=== PATIENT | male | born 1980 | race African-American/Black ===

== ENCOUNTER 2020-11-25 07:58 | Emergency (ER) | payer SELFPAY ==
[~2020-11-25] VITALS: Ht 180.3 cm; Wt 130.6 kg
[2020-11-25] MEDS ORDERED: PANTOPRAZOLE 40 MG/10 ML VIAL INJ IV ONE (08:30)
[2020-11-25] MEDS ORDERED: SODIUM CHLORIDE 0.9% 1,000 ML IVB ONE (08:30)
[2020-11-25] MEDS ORDERED: MORPHINE SULFATE 4 MG/ML SYR/VIAL IV ONE (08:30)
[2020-11-25] MEDS ORDERED: PROCHLORPERAZINE EDISYLATE 5 MG/ML 2ML VIAL IV ONE (08:30)
[2020-11-25 09:12] LABS: Basophils # (auto) 0 10 ^3/uL (0-0.2); Eosinophils # (auto) 0 10 ^3/uL (0-0.8); Monocytes # (auto) 0.8 10 ^3/uL (0-1.3)
[2020-11-25 09:15] LABS: Basophils % (auto) 0.5 % (0.0-2.0); Eosinophils % (auto) 0.6 % (0.0-7.0); Hematocrit 43.8 % (41.0-53.0); Hemoglobin 14.4 g/dL (13.5-17.5); Lymphocytes # (auto) 1.7 10 ^3/uL (0.4-5.4); Lymphocytes % (auto) 34.5 % (10.0-50.0); Mean Corpuscular Hgb Conc. 32.9 g/dL (32.0-36.0); Mean Corpuscular Volume 66.9 fL (80.0-100.0); Monocytes % (auto) 15.3 % (0.0-12.0); Neutrophils # (auto) 2.5 10 ^3/uL (1.6-8.6); Neutrophils % (auto) 49.1 % (37.0-80.0); Nucleated Red Blood Cells % 0.3 %; Red Blood Cells 6.55 10^6/uL (4.5-5.90); Red Cell Distribution Width 15.6 % (11.8-14.3)
[2020-11-25 09:22] LABS: Albumin 3.9 g/dL (3.4-5.0); Anion Gap 3 (5-15); Blood Urea Nitrogen 10 mg/dL (7-18); Calcium 8.8 mg/dL (8.5-10.1); Carbon Dioxide 27 mmol/L (21-32); Chloride 104 mmol/L (98-107); Glucose 106 mg/dL (74-106); Lipase 286 U/L (73-393); Potassium 4.5 mmol/L (3.5-5.1); Sodium 134 mmol/L (136-145)
[2020-11-25 09:29] LABS: Alanine Aminotransferase 31 U/L (16-61); Alkaline Phosphatase 62 U/L (45-117); Aspartate Aminotransferase 20 U/L (15-37); BUN/Creatinine Ratio 9.4; Bilirubin, Total 0.5 mg/dL (0.2-1.0); GFR African American 101 mL/min; GFR Non-African American 83 mL/min; Total Protein 9.3 g/dL (6.4-8.2)
[2020-11-25 09:30] VITALS: BP 160/93
== END 2020-11-25 10:08 | disposition home or self-care (01) ==
LOC: ER 07:58
DX: K29.00 Acute gastritis without bleeding (principal)
CPT/HCPCS: 36415; 76705; 80053; 83690; 84484; 85025; 96361; 96374; 96375; 99284; C9113; J0780; J2270; J7030

== ENCOUNTER 2021-04-07 00:19 | Emergency (ER) | payer BC ==
[~2021-04-07] VITALS: Ht 180.3 cm; Wt 124.3 kg
[2021-04-07] MEDS ORDERED: ONDANSETRON HCL 4 MG/2 ML VIAL IV ONE (03:45)
[2021-04-07] MEDS ORDERED: SODIUM CHLORIDE 0.9% 1,000 ML IVB ONE (03:45)
[2021-04-07] MEDS ORDERED: MORPHINE SULFATE 10 MG/ML INJ 1ML SDV IV ONE (03:45)
[2021-04-07] MEDS ORDERED: MORPHINE SULFATE 4 MG/ML SYR/VIAL IV ONE (05:15)
[2021-04-07 05:32] LABS: Basophils # (auto) 0 10 ^3/uL (0-0.2); Basophils % (auto) 0.2 % (0.0-2.0); Eosinophils # (auto) 0 10 ^3/uL (0-0.8); Eosinophils % (auto) 0.3 % (0.0-7.0); Hematocrit 43.4 % (41.0-53.0); Lymphocytes # (auto) 1.5 10 ^3/uL (0.4-5.4); Lymphocytes % (auto) 23.7 % (10.0-50.0); Mean Corpuscular Hemoglobin 21.8 pg (28.0-32.0); Mean Corpuscular Hgb Conc. 32.2 g/dL (32.0-36.0); Mean Corpuscular Volume 67.8 fL (80.0-100.0); Monocytes # (auto) 0.6 10 ^3/uL (0-1.3); Monocytes % (auto) 9.5 % (0.0-12.0); Neutrophils # (auto) 4.3 10 ^3/uL (1.6-8.6); Neutrophils % (auto) 66.3 % (37.0-80.0); Nucleated Red Blood Cells % 0.2 %; Red Cell Distribution Width 16.5 % (11.8-14.3); White Blood Cell 6.5 10^3/uL (4.4-10.8)
[2021-04-07 05:40] LABS: Potassium 4.1 mmol/L (3.5-5.1)
[2021-04-07 05:42] VITALS: BP 145/91
[2021-04-07 05:47] LABS: Albumin 4.1 g/dL (3.4-5.0); BUN/Creatinine Ratio 12.5; Bilirubin, Total 0.4 mg/dL (0.2-1.0); Calcium 8.9 mg/dL (8.5-10.1)
== END 2021-04-07 08:28 | disposition home or self-care (01) ==
LOC: ER 00:19
DX: K59.39 Other megacolon (principal)
CPT/HCPCS: 36415; 74176; 80053; 82150; 83690; 85025; 93005; 96361; 96374; 96375; 99285; J2270; J2405; J7030

== ENCOUNTER 2021-04-27 15:53 | Emergency (ER) | payer BC ==
[~2021-04-27] VITALS: Ht 180.3 cm; Wt 124.3 kg
[2021-04-27] MEDS ORDERED: IOHEXOL 300 MG/ML 100ML BOTTLE IJ ONE (22:17)
[2021-04-28 00:12] LABS: Basophils # (auto) 0 10 ^3/uL (0-0.2); Basophils % (auto) 0.2 % (0.0-2.0); Eosinophils # (auto) 0 10 ^3/uL (0-0.8); Eosinophils % (auto) 0.4 % (0.0-7.0); Hematocrit 42.3 % (41.0-53.0); Hemoglobin 13.6 g/dL (13.5-17.5); Lymphocytes # (auto) 1.4 10 ^3/uL (0.4-5.4); Lymphocytes % (auto) 25.2 % (10.0-50.0); Mean Corpuscular Hemoglobin 21.7 pg (28.0-32.0); Mean Corpuscular Hgb Conc. 32.1 g/dL (32.0-36.0); Mean Corpuscular Volume 67.6 fL (80.0-100.0); Monocytes # (auto) 0.6 10 ^3/uL (0-1.3); Monocytes % (auto) 10.7 % (0.0-12.0); Neutrophils # (auto) 3.6 10 ^3/uL (1.6-8.6); Neutrophils % (auto) 63.5 % (37.0-80.0); Nucleated Red Blood Cells % 0.2 %; Red Blood Cells 6.27 10^6/uL (4.5-5.90); Red Cell Distribution Width 16.2 % (11.8-14.3); White Blood Cell 5.7 10^3/uL (4.4-10.8)
[2021-04-28 00:25] LABS: Potassium 4.4 mmol/L (3.5-5.1)
[2021-04-28 00:32] LABS: BUN/Creatinine Ratio 10.4; Bilirubin, Total 0.5 mg/dL (0.2-1.0); Calcium 9.1 mg/dL (8.5-10.1); Total Protein 8.3 g/dL (6.4-8.2)
[2021-04-28] MEDS ORDERED: SODIUM CHLORIDE 0.9% 1,000 ML IV ONE (00:45)
[2021-04-28] MEDS ORDERED: MORPHINE SULFATE 4 MG/ML SYR/VIAL IV ONE (00:45)
[2021-04-28] MEDS ORDERED: ONDANSETRON HCL 4 MG/2 ML VIAL IV ONE (00:45)
[2021-04-28 03:21] LABS: Urine Bacteria NONE SEEN /hpf (None Seen); Urine Blood Negative /uL (Negative); Urine WBC <1 /hpf (0 - 3)
[2021-04-28 03:23] LABS: Urine Specific Gravity > 1.030 (1.001-1.035)
[2021-04-28 03:48] VITALS: BP 132/74
[2021-04-28] MEDS ORDERED: SUCRALFATE 1 GM/10 ML ORAL SUSP PO ONE (04:00)
== END 2021-04-28 03:59 | disposition home or self-care (01) ==
LOC: ER 15:53
DX: R10.9 Unspecified abdominal pain (principal); K21.9 Gastro-esophageal reflux disease without esophagitis
CPT/HCPCS: 36415; 74177; 80053; 81001; 82150; 83605; 83690; 85025; 96361; 96374; 96375; 99285; J2270; J2405; J7030; Q9967

== ENCOUNTER 2021-07-11 06:07 | Inpatient (IN) | payer BC ==
[~2021-07-11] VITALS: Ht 180.3 cm; Wt 62.3 kg
[2021-07-11 07:04] LABS: Basophils # (auto) 0 10 ^3/uL (0-0.2); Eosinophils # (auto) 0 10 ^3/uL (0-0.8); Monocytes # (auto) 0.6 10 ^3/uL (0-1.3)
[2021-07-11 07:05] LABS: Basophils % (auto) 0.4 % (0.0-2.0); Lymphocytes # (auto) 1.3 10 ^3/uL (0.4-5.4); Lymphocytes % (auto) 32.3 % (10.0-50.0); Mean Corpuscular Hemoglobin 21.7 pg (28.0-32.0); Mean Corpuscular Hgb Conc. 32.5 g/dL (32.0-36.0); Mean Corpuscular Volume 66.9 fL (80.0-100.0); Neutrophils % (auto) 50.3 % (37.0-80.0); Nucleated Red Blood Cells % 0.3 %; Red Blood Cells 5.98 10^6/uL (4.5-5.90); Red Cell Distribution Width 15.7 % (11.8-14.3)
[2021-07-11 07:38] LABS: Albumin 3.8 g/dL (3.4-5.0); BUN/Creatinine Ratio 9.1; Calcium 9.1 mg/dL (8.5-10.1)
[2021-07-11 07:40] LABS: Bilirubin, Total 0.5 mg/dL (0.2-1.0); Total Protein 8.3 g/dL (6.4-8.2)
[2021-07-11 09:08] LABS: Urine WBC None Seen /hpf (0 - 3)
[2021-07-11] MEDS ORDERED: MORPHINE SULFATE INJECTION 2 MG/ML SYRG IV ONE (09:15)
[2021-07-11] MEDS ORDERED: ONDANSETRON HCL 4 MG/2 ML VIAL IV ONE (09:15)
[2021-07-11 09:26] LABS: Urine Bacteria NONE SEEN /hpf (None Seen); Urine Blood Negative /uL (Negative); Urine Specific Gravity 1.016 (1.001-1.035)
[2021-07-11] MEDS ORDERED: MORPHINE SULFATE INJECTION 2 MG/ML SYRG IV PRN ×2 (10:30→11:30)
[2021-07-11] MEDS ORDERED: ONDANSETRON HCL 4 MG/2 ML VIAL IV PRN (10:30)
[2021-07-11] MEDS ORDERED: SODIUM CHLORIDE 0.9% 1,000 ML IV ONE (10:30)
[2021-07-11] MEDS ORDERED: cefTRIAXone 1GM/50ML D5W 50 ML IV ONE (11:30)
[2021-07-11] MEDS ORDERED: LORazepam 0.5 MG TAB PO PRN (11:30)
[2021-07-11] MEDS ORDERED: HYDROcodone-ACET 5/325MG TAB PO PRN (11:30)
[2021-07-11] MEDS ORDERED: IPRATROPIUM BROM 0.5 MG/2.5ML INH SOL NEB ONE (11:30)
[2021-07-11] MEDS ORDERED: LACTULOSE 20Gm/30ML SOLN PO PRN (11:30)
[2021-07-11] MEDS ORDERED: CLINDAMYCIN 600 MG/4 ML VL IM ONE (11:30)
[2021-07-11] MEDS ORDERED: DOCUSATE SOD 100 MG CAP PO PRN (11:30)
[2021-07-11] MEDS ORDERED: PANTOPRAZOLE 40 MG/10 ML VIAL INJ IV ONE (11:30)
[2021-07-11] MEDS ORDERED: MULTIPLE VITAMINS W/ MINERALS TAB PO ONE (11:30)
[2021-07-11] MEDS ORDERED: NITROGLYCERIN 0.4 MG SL TAB SL PRN (11:30)
[2021-07-11] MEDS ORDERED: HYDROcodone-ACET 5/325MG TAB PO ONE (11:30)
[2021-07-11] MEDS ORDERED: GASTROGRAFIN 120 ML SOL ONE (11:36)
[2021-07-11 11:58] LABS: Magnesium 2.7 mg/dL (1.6-2.6); Phosphorus 3.9 mg/dL (2.5-4.90)
[2021-07-11] MEDS: SODIUM CHLORIDE 0.9% 1,000 ML IV SCH ×2 (12:20→22:00)
[2021-07-11] MEDS: IPRATROPIUM BROM 0.5 MG/2.5ML INH SOL NEB SCH ×3 (13:53→21:45)
[2021-07-11] MEDS ORDERED: DICY20TA PO (14:26)
[2021-07-11] MEDS ORDERED: ONDA-144 PO (14:29)
[2021-07-11] MEDS ORDERED: PANT40TA2 PO (14:29)
[2021-07-11] MEDS: MORPHINE SULFATE 4 MG/ML SYR/VIAL IV PRN (14:39)
[2021-07-11] MEDS ORDERED: MORPHINE SULFATE 4 MG/ML SYR/VIAL IV PRN (14:45)
[2021-07-11 14:59] VITALS: BP 130/81
[2021-07-11] MEDS: ONDANSETRON HCL 4 MG/2 ML VIAL IV PRN ×2 (17:17→23:53)
[2021-07-11] MEDS: MORPHINE SULFATE INJECTION 2 MG/ML SYRG IV PRN (18:51)
[2021-07-11] MEDS ORDERED: CLINDAMYCIN 600 MG/4 ML VL IM SCH (20:00)
[2021-07-11 22:00] VITALS: BP 146/95
[2021-07-11] MEDS: PANTOPRAZOLE 40 MG/10 ML VIAL INJ IV SCH (22:30)
[2021-07-11] MEDS: ATORVASTATIN 20 MG TAB PO SCH (22:30)
[2021-07-12] MEDS: IPRATROPIUM BROM 0.5 MG/2.5ML INH SOL NEB SCH ×6 (02:23→22:04)
[2021-07-12 05:00] VITALS: BP 148/104
[2021-07-12 05:01] LABS: Basophils # (auto) 0 10 ^3/uL (0-0.2); Basophils % (auto) 0.2 % (0.0-2.0); Eosinophils # (auto) 0 10 ^3/uL (0-0.8); Eosinophils % (auto) 0.1 % (0.0-7.0); Hematocrit 41.3 % (41.0-53.0); Hemoglobin 13.5 g/dL (13.5-17.5); Lymphocytes # (auto) 1.2 10 ^3/uL (0.4-5.4); Lymphocytes % (auto) 21.8 % (10.0-50.0); Mean Corpuscular Hemoglobin 21.8 pg (28.0-32.0); Mean Corpuscular Hgb Conc. 32.7 g/dL (32.0-36.0); Mean Corpuscular Volume 66.6 fL (80.0-100.0); Monocytes # (auto) 0.8 10 ^3/uL (0-1.3); Monocytes % (auto) 14.8 % (0.0-12.0); Neutrophils # (auto) 3.4 10 ^3/uL (1.6-8.6); Neutrophils % (auto) 63.1 % (37.0-80.0); Nucleated Red Blood Cells % 0.2 %; Red Blood Cells 6.21 10^6/uL (4.5-5.90); Red Cell Distribution Width 15.7 % (11.8-14.3); White Blood Cell 5.4 10^3/uL (4.4-10.8)
[2021-07-12 05:16] LABS: INR 1.09 (0.9-1.15); Partial Thromboplastin Time 29.5 sec (23.6-33.0)
[2021-07-12 05:21] LABS: Albumin 3.7 g/dL (3.4-5.0); Magnesium 2.6 mg/dL (1.6-2.6); Potassium 4.3 mmol/L (3.5-5.1)
[2021-07-12 05:27] LABS: Bilirubin, Total 0.4 mg/dL (0.2-1.0); Calcium 9.1 mg/dL (8.5-10.1); Phosphorus 4.6 mg/dL (2.5-4.90); Total Protein 8.6 g/dL (6.4-8.2); Uric Acid 6.8 mg/dL (3.5-7.2)
[2021-07-12] MEDS ORDERED: cefTRIAXone 1GM/50ML D5W 50 ML IV SCH (09:00)
[2021-07-12 09:19] VITALS: BP 160/104
[2021-07-12] MEDS ORDERED: PANTOPRAZOLE 40 MG/10 ML VIAL INJ IV SCH (10:00)
[2021-07-12] MEDS: CHOLECALCIFEROL (VITD3) 2,000 UNIT CAP/TAB PO SCH (10:30)
[2021-07-12] MEDS: MULTIPLE VITAMINS W/ MINERALS TAB PO SCH (10:30)
[2021-07-12] MEDS: ENOXAPARIN SOD 40 MG/0.4 ML SYRINGE SC SCH (10:30)
[2021-07-12] MEDS: PANTOPRAZOLE 40 MG/10 ML VIAL INJ IV SCH ×2 (10:30→22:07)
[2021-07-12] MEDS: ASPirin 81 mg TAB PO SCH (10:30)
[2021-07-12] MEDS: hydrALAZINE HCL 20 MG/ML VL IV PRN (11:30)
[2021-07-12] MEDS: ONDANSETRON HCL 4 MG/2 ML VIAL IV PRN (11:30)
[2021-07-12] MEDS: MORPHINE SULFATE 4 MG/ML SYR/VIAL IV PRN (11:37)
[2021-07-12 13:17] VITALS: BP 147/95
[2021-07-12] MEDS: MORPHINE SULFATE INJECTION 2 MG/ML SYRG IV PRN (20:00)
[2021-07-12 22:00] VITALS: BP 143/97
[2021-07-12] MEDS: SODIUM CHLORIDE 0.9% 1,000 ML IV SCH (22:07)
[2021-07-12] MEDS: ATORVASTATIN 20 MG TAB PO SCH (22:07)
[2021-07-13] VITALS: BP 143/97
[2021-07-13] MEDS: IPRATROPIUM BROM 0.5 MG/2.5ML INH SOL NEB SCH ×6 (02:34→22:45)
[2021-07-13 05:00] VITALS: BP 131/99
[2021-07-13 08:00] VITALS: BP 157/103
[2021-07-13] MEDS: CHOLECALCIFEROL (VITD3) 2,000 UNIT CAP/TAB PO SCH (09:09)
[2021-07-13] MEDS: MULTIPLE VITAMINS W/ MINERALS TAB PO SCH (09:09)
[2021-07-13] MEDS: PANTOPRAZOLE 40 MG/10 ML VIAL INJ IV SCH ×2 (09:09→22:54)
[2021-07-13] MEDS: ASPirin 81 mg TAB PO SCH (09:09)
[2021-07-13] MEDS: ENOXAPARIN SOD 40 MG/0.4 ML SYRINGE SC SCH (09:09)
[2021-07-13] MEDS: hydrALAZINE HCL 20 MG/ML VL IV PRN (09:10)
[2021-07-13] MEDS ORDERED: diphenhdrAMINE HCL 50 MG/1 ML VL ONE (10:39)
[2021-07-13] MEDS: MIDAZOLAM HCL 5 MG/ML-1ML VIAL ONE ×2 (10:40→10:43)
[2021-07-13] MEDS: fentaNYL CITRATE 100 MCG/2 ML VL ONE ×2 (10:40→10:43)
[2021-07-13 12:00] VITALS: BP 140/94
[2021-07-13] MEDS: SODIUM CHLORIDE 0.9% 1,000 ML IV SCH (12:36)
[2021-07-13] MEDS ORDERED: SODIUM CHLORIDE 0.9% 1,000 ML IV ONE (15:00)
[2021-07-13] MEDS ORDERED: PPN PER PHARMACY 0 ML IV SCH (15:00)
[2021-07-13 16:00] VITALS: BP 140/88
[2021-07-13] MEDS ORDERED: FLEET MINERAL OIL ENEMA 133 ML PR ONE (16:15)
[2021-07-13] MEDS ORDERED: GOLYTELY 4L KIT NG ONE (16:15)
[2021-07-13 17:57] LABS: Albumin 3.6 g/dL (3.4-5.0); BUN/Creatinine Ratio 13.6; Magnesium 2.5 mg/dL (1.6-2.6); Potassium 4.2 mmol/L (3.5-5.1)
[2021-07-13 17:59] LABS: Bilirubin, Total 0.6 mg/dL (0.2-1.0); Phosphorus 3.2 mg/dL (2.5-4.90); Total Protein 8.4 g/dL (6.4-8.2)
[2021-07-13] MEDS ORDERED: AMINO ACID INFUSION IN D10W 1,000 ML IV NR (20:00)
[2021-07-13 22:00] VITALS: BP 142/92
[2021-07-13] MEDS: MINERAL OIL 30 ML GT SCH (22:54)
[2021-07-14] MEDS ORDERED: DEXTROSE (50%) 50ML SYRG IV SCH
[2021-07-14] MEDS: ACCU-CHEK COMFORT CURVE STRIP VI SCH ×4 (00:01→18:49)
[2021-07-14] MEDS: IPRATROPIUM BROM 0.5 MG/2.5ML INH SOL NEB SCH ×6 (02:35→22:45)
[2021-07-14 05:00] VITALS: BP 123/86
[2021-07-14] MEDS: InsuLIN REG 1unit/0.01ml Soln (100units/ml) SC SCH ×4 (06:00→18:58)
[2021-07-14] MEDS: SODIUM CHLORIDE 0.9% 1,000 ML IV SCH ×2 (06:10→22:12)
[2021-07-14 07:15] LABS: Potassium 3.9 mmol/L (3.5-5.1)
[2021-07-14 07:24] LABS: Albumin 3.3 g/dL (3.4-5.0); Bilirubin, Total 0.7 mg/dL (0.2-1.0); Calcium 8.9 mg/dL (8.5-10.1); Magnesium 2.6 mg/dL (1.6-2.6); Phosphorus 3.6 mg/dL (2.5-4.90); Total Protein 7.8 g/dL (6.4-8.2)
[2021-07-14 08:45] VITALS: BP 123/86
[2021-07-14 09:09] VITALS: BP 136/99
[2021-07-14] MEDS: ENOXAPARIN SOD 40 MG/0.4 ML SYRINGE SC SCH (10:05)
[2021-07-14] MEDS: PANTOPRAZOLE 40 MG/10 ML VIAL INJ IV SCH ×2 (10:05→22:11)
[2021-07-14] MEDS: MINERAL OIL 30 ML GT SCH ×2 (10:05→22:00)
[2021-07-14] MEDS ORDERED: FLEET MINERAL OIL ENEMA 133 ML PR ONE (12:30)
[2021-07-14 13:00] VITALS: BP 133/95
[2021-07-14] MEDS ORDERED: D5W/SOD CHL 0.45%/KCL 20MEQ 1,000 ML IV ONE (15:15)
[2021-07-14 17:10] VITALS: BP 146/104
[2021-07-14] MEDS: MORPHINE SULFATE INJECTION 2 MG/ML SYRG IV PRN (17:26)
[2021-07-14] MEDS ORDERED: PPN PER PHARMACY IV NR ×8 (20:00)
[2021-07-14 22:00] VITALS: BP 135/93
[2021-07-15] VITALS (12 sets, daily range): BP systolic 130–156; BP diastolic 89–103
[2021-07-15] MEDS: ACCU-CHEK COMFORT CURVE STRIP VI SCH ×4 (02:02→17:11)
[2021-07-15] MEDS: IPRATROPIUM BROM 0.5 MG/2.5ML INH SOL NEB SCH ×6 (02:05→22:00)
[2021-07-15] MEDS: InsuLIN REG 1unit/0.01ml Soln (100units/ml) SC SCH ×4 (06:00→17:10)
[2021-07-15 06:50] LABS: Hemoglobin 12.7 g/dL (13.5-17.5); Red Cell Distribution Width 15.7 % (11.8-14.3)
[2021-07-15 06:53] LABS: Hematocrit 37.6 % (41.0-53.0); Mean Corpuscular Hemoglobin 22.4 pg (28.0-32.0); Mean Corpuscular Hgb Conc. 33.7 g/dL (32.0-36.0); Mean Corpuscular Volume 66.4 fL (80.0-100.0); Red Blood Cells 5.66 10^6/uL (4.5-5.90); White Blood Cell 3.9 10^3/uL (4.4-10.8)
[2021-07-15] MEDS ORDERED: ceFAZolin 1GM/50ML 100 ML IV ONE (07:01)
[2021-07-15 07:02] LABS: INR 1.11 (0.9-1.15); Partial Thromboplastin Time 30.8 sec (23.6-33.0)
[2021-07-15 07:03] LABS: Band Neutrophils % (manual) 0; Basophils % (manual) 0 (0.0-2.0); Blast Cells 0; Metamyelocytes % 0; Myelocytes % 0; Reactive Lymphocytes 0
[2021-07-15 07:05] LABS: Albumin 3.3 g/dL (3.4-5.0); BUN/Creatinine Ratio 13.3; Calcium 8.7 mg/dL (8.5-10.1); Magnesium 2.4 mg/dL (1.6-2.6); Potassium 3.8 mmol/L (3.5-5.1)
[2021-07-15 07:07] LABS: Bilirubin, Total 0.7 mg/dL (0.2-1.0); Phosphorus 3.2 mg/dL (2.5-4.90); Total Protein 7.7 g/dL (6.4-8.2)
[2021-07-15] MEDS ORDERED: HYDROmorphone HCL 2 MG/ML VL ONE ×2 (07:46→11:24)
[2021-07-15] MEDS ORDERED: ONDANSETRON HCL 4 MG/2 ML VIAL ONE (07:47)
[2021-07-15] MEDS ORDERED: LIDOCAINE 2% (LOCAL ANESTH.) PF 5ml SDV ONE (07:47)
[2021-07-15] MEDS ORDERED: fentaNYL CITRATE 100 MCG/2 ML VL ONE ×2 (07:47→09:34)
[2021-07-15] MEDS ORDERED: MIDAZOLAM HCL 2MG/2ML 2ml VIAL (1mg/ml) ONE (07:47)
[2021-07-15] MEDS ORDERED: PROPOFOL 10 MG/ML 20 ML IV ONE (07:47)
[2021-07-15 08:28] LABS: Eosinophils % (manual) 1 (0-7); Lymphocytes % (manual) 26 (10.0-50.0); Monocytes % (manual) 23 (0-12); Promyelocytes % 1
[2021-07-15] MEDS: PANTOPRAZOLE 40 MG/10 ML VIAL INJ IV SCH ×2 (10:00→20:37)
[2021-07-15] MEDS: MINERAL OIL 30 ML GT SCH (10:00)
[2021-07-15] MEDS: ENOXAPARIN SOD 40 MG/0.4 ML SYRINGE SC SCH (10:00)
[2021-07-15] MEDS ORDERED: GLYCOPYRROLATE 0.2 MG/ML 1ML VIAL ONE (11:13)
[2021-07-15] MEDS ORDERED: NEOSTIGMINE 1 MG/ML INJ (10mg/10ML VIAL) ONE (11:13)
[2021-07-15] MEDS ORDERED: ONDANSETRON HCL 4 MG/2 ML VIAL IV PRN (11:30)
[2021-07-15] MEDS ORDERED: HYDROmorphone HCL 2 MG/ML VL IV PRN (11:30)
[2021-07-15] MEDS: HYDROmorphone HCL 2 MG/ML VL IV PRN ×4 (11:30→22:41)
[2021-07-15] MEDS ORDERED: LABETALOL HCL 5 MG/ML 4ML SYRINGE IV PRN (13:30)
[2021-07-15] MEDS: MORPHINE SULFATE INJECTION 2 MG/ML SYRG IV PRN (14:37)
[2021-07-15] MEDS: SODIUM CHLORIDE 0.9% 1,000 ML IV SCH (15:23)
[2021-07-15] MEDS ORDERED: MORPHINE SULFATE INJECTION 2 MG/ML SYRG IV PRN (17:00)
[2021-07-15] MEDS ORDERED: PPN PER PHARMACY IV NR ×9 (20:00)
[2021-07-16] VITALS (16 sets, daily range): BP systolic 109–142; BP diastolic 60–91
[2021-07-16] MEDS: IPRATROPIUM BROM 0.5 MG/2.5ML INH SOL NEB SCH ×6 (02:00→22:12)
[2021-07-16] MEDS: InsuLIN REG 1unit/0.01ml Soln (100units/ml) SC SCH ×4 (02:18→17:01)
[2021-07-16] MEDS: ACCU-CHEK COMFORT CURVE STRIP VI SCH ×4 (02:30→17:00)
[2021-07-16] MEDS: HYDROmorphone HCL 2 MG/ML VL IV PRN ×5 (02:59→21:11)
[2021-07-16 04:26] LABS: Basophils # (auto) 0 10 ^3/uL (0-0.2); Basophils % (auto) 0.2 % (0.0-2.0); Eosinophils # (auto) 0 10 ^3/uL (0-0.8)
[2021-07-16 04:29] LABS: Eosinophils % (auto) 0.2 % (0.0-7.0); Hematocrit 38.9 % (41.0-53.0); Hemoglobin 12.6 g/dL (13.5-17.5); Lymphocytes % (auto) 17.9 % (10.0-50.0); Mean Corpuscular Hemoglobin 21.6 pg (28.0-32.0); Mean Corpuscular Hgb Conc. 32.5 g/dL (32.0-36.0); Mean Corpuscular Volume 66.7 fL (80.0-100.0); Monocytes # (auto) 0.7 10 ^3/uL (0-1.3); Monocytes % (auto) 12.3 % (0.0-12.0); Neutrophils # (auto) 3.8 10 ^3/uL (1.6-8.6); Neutrophils % (auto) 69.4 % (37.0-80.0); Nucleated Red Blood Cells % 0.2 %; Red Blood Cells 5.84 10^6/uL (4.5-5.90); Red Cell Distribution Width 15.7 % (11.8-14.3); White Blood Cell 5.4 10^3/uL (4.4-10.8)
[2021-07-16 04:47] LABS: Albumin 2.4 g/dL (3.4-5.0); BUN/Creatinine Ratio 10.4; Calcium 7.9 mg/dL (8.5-10.1); Potassium 4.4 mmol/L (3.5-5.1)
[2021-07-16 04:50] LABS: Bilirubin, Total 0.5 mg/dL (0.2-1.0); Phosphorus 3.1 mg/dL (2.5-4.90); Total Protein 6.6 g/dL (6.4-8.2)
[2021-07-16] MEDS: SODIUM CHLORIDE 0.9% 1,000 ML IV SCH (07:43)
[2021-07-16] MEDS: KETOROLAC TROMETH 30 MG/ML 1ML VIAL IV PRN (08:50)
[2021-07-16] MEDS: PANTOPRAZOLE 40 MG/10 ML VIAL INJ IV SCH ×2 (09:13→21:11)
[2021-07-16] MEDS: ENOXAPARIN SOD 40 MG/0.4 ML SYRINGE SC SCH (09:13)
[2021-07-16] MEDS: PPN PER PHARMACY IV NR ×11 (20:00)
[2021-07-17] MEDS: InsuLIN REG 1unit/0.01ml Soln (100units/ml) SC SCH ×4 (00:07→18:00)
[2021-07-17] MEDS: ACCU-CHEK COMFORT CURVE STRIP VI SCH ×4 (00:11→19:28)
[2021-07-17] MEDS: SODIUM CHLORIDE 0.9% 1,000 ML IV SCH ×2 (01:30→18:14)
[2021-07-17] MEDS: HYDROmorphone HCL 2 MG/ML VL IV PRN ×5 (02:19→22:45)
[2021-07-17] MEDS: IPRATROPIUM BROM 0.5 MG/2.5ML INH SOL NEB SCH ×6 (02:42→22:16)
[2021-07-17 05:00] VITALS: BP 115/72
[2021-07-17 06:41] LABS: Basophils # (auto) 0 10 ^3/uL (0-0.2); Eosinophils # (auto) 0 10 ^3/uL (0-0.8); Eosinophils % (auto) 0.6 % (0.0-7.0); Neutrophils % (auto) 70.5 % (37.0-80.0); White Blood Cell 5.9 10^3/uL (4.4-10.8)
[2021-07-17 06:44] LABS: Basophils % (auto) 0.1 % (0.0-2.0); Hemoglobin 11.3 g/dL (13.5-17.5); Lymphocytes % (auto) 16.2 % (10.0-50.0); Mean Corpuscular Hemoglobin 21.4 pg (28.0-32.0); Mean Corpuscular Hgb Conc. 32.2 g/dL (32.0-36.0); Mean Corpuscular Volume 66.4 fL (80.0-100.0); Monocytes # (auto) 0.7 10 ^3/uL (0-1.3); Monocytes % (auto) 12.6 % (0.0-12.0); Neutrophils # (auto) 4.1 10 ^3/uL (1.6-8.6); Red Blood Cells 5.26 10^6/uL (4.5-5.90); Red Cell Distribution Width 15.3 % (11.8-14.3)
[2021-07-17 06:58] LABS: Potassium 4.4 mmol/L (3.5-5.1)
[2021-07-17 07:03] LABS: Albumin 2.2 g/dL (3.4-5.0); BUN/Creatinine Ratio 12.5; Bilirubin, Total 0.5 mg/dL (0.2-1.0); Calcium 8.3 mg/dL (8.5-10.1); Magnesium 2.6 mg/dL (1.6-2.6); Phosphorus 3.1 mg/dL (2.5-4.90); Total Protein 6.7 g/dL (6.4-8.2)
[2021-07-17] MEDS: PIPERACILLIN-TAZOB 3.375GM 100 ML IV SCH (07:56)
[2021-07-17 09:00] VITALS: BP 133/69
[2021-07-17] MEDS ORDERED: PIPERACILLIN-TAZOB 2.25GM 50 ML IV ONE (10:00)
[2021-07-17] MEDS: ENOXAPARIN SOD 40 MG/0.4 ML SYRINGE SC SCH (11:13)
[2021-07-17] MEDS: PANTOPRAZOLE 40 MG/10 ML VIAL INJ IV SCH ×2 (11:13→22:47)
[2021-07-17] MEDS: PPN PER PHARMACY IV NR ×11 (11:18)
[2021-07-17 11:21] VITALS: BP 133/69
[2021-07-17 13:00] VITALS: BP 121/76
[2021-07-17 17:00] VITALS: BP 113/67
[2021-07-17] MEDS ORDERED: THROAT LOZENGES(CEPASTAT) MT PRN (18:45)
[2021-07-17] MEDS ORDERED: DEXTROSE (50%) 50ML SYRG IV ONE (18:45)
[2021-07-17] MEDS: D5W 5% 1,000 ML IV SCH (19:28)
[2021-07-17] MEDS ORDERED: PPN PER PHARMACY IV NR ×10 (20:00)
[2021-07-17 22:00] VITALS: BP_SYST 109; BP_SYST 127; BP_DIAS 68; BP_DIAS 73
[2021-07-18] MEDS: ACCU-CHEK COMFORT CURVE STRIP VI SCH ×5 (00:15→23:24)
[2021-07-18] MEDS: PIPERACILLIN-TAZOB 3.375GM 100 ML IV SCH ×4 (00:56→17:00)
[2021-07-18] MEDS: IPRATROPIUM BROM 0.5 MG/2.5ML INH SOL NEB SCH ×6 (03:45→22:43)
[2021-07-18 05:00] VITALS: BP 133/84
[2021-07-18] MEDS: HYDROmorphone HCL 2 MG/ML VL IV PRN ×7 (05:13→23:34)
[2021-07-18] MEDS: InsuLIN REG 1unit/0.01ml Soln (100units/ml) SC SCH ×5 (05:28→23:24)
[2021-07-18 06:23] VITALS: BP 133/84
[2021-07-18 07:32] LABS: Basophils # (auto) 0 10 ^3/uL (0-0.2); Eosinophils # (auto) 0.1 10 ^3/uL (0-0.8); Lymphocytes # (auto) 0.6 10 ^3/uL (0.4-5.4); Mean Corpuscular Volume 66.4 fL (80.0-100.0); Monocytes # (auto) 0.6 10 ^3/uL (0-1.3); White Blood Cell 4.8 10^3/uL (4.4-10.8)
[2021-07-18 07:36] LABS: Basophils % (auto) 0.1 % (0.0-2.0); Eosinophils % (auto) 2.1 % (0.0-7.0); Hemoglobin 10.5 g/dL (13.5-17.5); Lymphocytes % (auto) 13.6 % (10.0-50.0); Mean Corpuscular Hemoglobin 21.9 pg (28.0-32.0); Monocytes % (auto) 13.3 % (0.0-12.0); Neutrophils # (auto) 3.4 10 ^3/uL (1.6-8.6); Neutrophils % (auto) 70.9 % (37.0-80.0); Red Blood Cells 4.82 10^6/uL (4.5-5.90); Red Cell Distribution Width 14.9 % (11.8-14.3)
[2021-07-18 07:59] LABS: Calcium 8.4 mg/dL (8.5-10.1); Potassium 3.9 mmol/L (3.5-5.1)
[2021-07-18 08:05] LABS: Bilirubin, Total 0.4 mg/dL (0.2-1.0); Magnesium 2.7 mg/dL (1.6-2.6); Phosphorus 2.9 mg/dL (2.5-4.90); Total Protein 6.7 g/dL (6.4-8.2)
[2021-07-18 08:55] VITALS: BP 114/72
[2021-07-18] MEDS: PANTOPRAZOLE 40 MG/10 ML VIAL INJ IV SCH ×2 (10:56→21:14)
[2021-07-18] MEDS: ENOXAPARIN SOD 40 MG/0.4 ML SYRINGE SC SCH (10:56)
[2021-07-18 12:48] VITALS: BP 127/67
[2021-07-18] MEDS: D5W 5% 1,000 ML IV SCH ×2 (14:45→17:35)
[2021-07-18 17:00] VITALS: BP 110/70
[2021-07-18] MEDS ORDERED: PPN PER PHARMACY IV NR ×9 (20:00)
[2021-07-18 22:00] VITALS: BP 119/62
[2021-07-19] MEDS: PIPERACILLIN-TAZOB 3.375GM 100 ML IV SCH ×2 (01:39→09:43)
[2021-07-19] MEDS: HYDROmorphone HCL 2 MG/ML VL IV PRN ×4 (02:38→20:33)
[2021-07-19] MEDS: IPRATROPIUM BROM 0.5 MG/2.5ML INH SOL NEB SCH ×2 (02:41→06:07)
[2021-07-19 05:00] VITALS: BP 105/73
[2021-07-19 05:35] LABS: Calcium 8.4 mg/dL (8.5-10.1); Potassium 3.9 mmol/L (3.5-5.1)
[2021-07-19 05:37] LABS: Basophils # (auto) 0 10 ^3/uL (0-0.2); Basophils % (auto) 0.3 % (0.0-2.0); Eosinophils # (auto) 0.2 10 ^3/uL (0-0.8); Eosinophils % (auto) 4.4 % (0.0-7.0); Hematocrit 31.5 % (41.0-53.0); Hemoglobin 10.3 g/dL (13.5-17.5); Lymphocytes # (auto) 0.7 10 ^3/uL (0.4-5.4); Lymphocytes % (auto) 21.1 % (10.0-50.0); Mean Corpuscular Hemoglobin 21.5 pg (28.0-32.0); Mean Corpuscular Hgb Conc. 32.6 g/dL (32.0-36.0); Mean Corpuscular Volume 66.1 fL (80.0-100.0); Monocytes # (auto) 0.6 10 ^3/uL (0-1.3); Neutrophils # (auto) 1.9 10 ^3/uL (1.6-8.6); Neutrophils % (auto) 55.6 % (37.0-80.0); Nucleated Red Blood Cells % 0.2 %; Red Blood Cells 4.76 10^6/uL (4.5-5.90); White Blood Cell 3.4 10^3/uL (4.4-10.8)
[2021-07-19 05:38] LABS: BUN/Creatinine Ratio 15.4; Magnesium 2.2 mg/dL (1.6-2.6); Monocytes % (auto) 18.6 % (0.0-12.0)
[2021-07-19] MEDS: ACCU-CHEK COMFORT CURVE STRIP VI SCH ×4 (05:40→23:37)
[2021-07-19] MEDS: InsuLIN REG 1unit/0.01ml Soln (100units/ml) SC SCH ×4 (05:40→23:38)
[2021-07-19 05:41] LABS: Bilirubin, Total 0.3 mg/dL (0.2-1.0); Phosphorus 3.8 mg/dL (2.5-4.90); Total Protein 6.6 g/dL (6.4-8.2)
[2021-07-19 06:07] VITALS: BP 110/63
[2021-07-19] MEDS ORDERED: IPRATROPIUM BROM 0.5 MG/2.5ML INH SOL NEB PRN (07:15)
[2021-07-19 09:30] VITALS: BP 90/57
[2021-07-19] MEDS: PANTOPRAZOLE 40 MG/10 ML VIAL INJ IV SCH (09:44)
[2021-07-19] MEDS: D5W 5% 1,000 ML IV SCH (09:44)
[2021-07-19] MEDS: ENOXAPARIN SOD 40 MG/0.4 ML SYRINGE SC SCH (09:44)
[2021-07-19 12:27] VITALS: BP 129/71
[2021-07-19 16:31] VITALS: BP 118/63
[2021-07-19] MEDS ORDERED: PPN PER PHARMACY IV NR ×10 (20:00)
[2021-07-19 22:00] VITALS: BP 121/69
[2021-07-20] MEDS: HYDROmorphone HCL 2 MG/ML VL IV PRN (05:04)
[2021-07-20 05:18] VITALS: BP 115/76
[2021-07-20] MEDS: InsuLIN REG 1unit/0.01ml Soln (100units/ml) SC SCH (06:00)
[2021-07-20] MEDS: ACCU-CHEK COMFORT CURVE STRIP VI SCH (06:11)
[2021-07-20 06:21] LABS: Basophils # (auto) 0 10 ^3/uL (0-0.2); Eosinophils # (auto) 0.1 10 ^3/uL (0-0.8); Lymphocytes # (auto) 0.7 10 ^3/uL (0.4-5.4); Monocytes % (auto) 16.7 % (0.0-12.0); Nucleated Red Blood Cells % 0.1 %
[2021-07-20 06:24] LABS: Basophils % (auto) 0.5 % (0.0-2.0); Eosinophils % (auto) 3.8 % (0.0-7.0); Hematocrit 31.9 % (41.0-53.0); Hemoglobin 11.2 g/dL (13.5-17.5); Lymphocytes % (auto) 17.5 % (10.0-50.0); Mean Corpuscular Hemoglobin 22.9 pg (28.0-32.0); Mean Corpuscular Hgb Conc. 35.1 g/dL (32.0-36.0); Mean Corpuscular Volume 65.4 fL (80.0-100.0); Monocytes # (auto) 0.6 10 ^3/uL (0-1.3); Neutrophils # (auto) 2.3 10 ^3/uL (1.6-8.6); Neutrophils % (auto) 61.5 % (37.0-80.0); Red Blood Cells 4.87 10^6/uL (4.5-5.90); Red Cell Distribution Width 14.9 % (11.8-14.3); White Blood Cell 3.8 10^3/uL (4.4-10.8)
[2021-07-20 06:41] LABS: Albumin 2.2 g/dL (3.4-5.0); Calcium 8.9 mg/dL (8.5-10.1); Magnesium 2.2 mg/dL (1.6-2.6); Potassium 3.9 mmol/L (3.5-5.1)
[2021-07-20 06:45] LABS: BUN/Creatinine Ratio 16.1; Bilirubin, Total 0.3 mg/dL (0.2-1.0); Phosphorus 3.8 mg/dL (2.5-4.90); Total Protein 7.2 g/dL (6.4-8.2)
[2021-07-20 08:21] VITALS: BP 115/76
[2021-07-20 09:00] VITALS: BP 124/72
[2021-07-20] MEDS: ENOXAPARIN SOD 40 MG/0.4 ML SYRINGE SC SCH (09:41)
[2021-07-20] MEDS: KETOROLAC TROMETH 30 MG/ML 1ML VIAL IV PRN (09:58)
[2021-07-20] MEDS ORDERED: PANTOPRAZOLE 40 MG/10 ML VIAL INJ IV SCH (10:00)
[2021-07-20 12:19] VITALS: BP 113/70
[2021-07-20] MEDS: HYDROcodone-ACET 5/325MG TAB PO PRN (14:52)
[2021-07-20 17:02] VITALS: BP 115/78
[2021-07-20] MEDS ORDERED: SODIUM ACETATE IV NR ×10 (20:00)
[2021-07-20] MEDS ORDERED: SODIUM CHLORIDE IV NR ×10 (20:00)
[2021-07-20] MEDS ORDERED: FAT EMULSION IV NR ×10 (20:00)
[2021-07-20] MEDS ORDERED: PPN PER PHARMACY IV NR ×10 (20:00)
[2021-07-20] MEDS ORDERED: [UNRECOGNIZED DRUG - OTHER] IV NR ×10 (20:00)
[2021-07-20 22:00] VITALS: BP 112/71
[2021-07-21] MEDS: HYDROcodone-ACET 5/325MG TAB PO PRN ×3 (00:35→19:07)
[2021-07-21 05:00] VITALS: BP 124/77
[2021-07-21 06:42] LABS: Basophils # (auto) 0 10 ^3/uL (0-0.2); Eosinophils # (auto) 0.2 10 ^3/uL (0-0.8); Mean Corpuscular Volume 65.9 fL (80.0-100.0); Nucleated Red Blood Cells % 0.1 %; White Blood Cell 3.3 10^3/uL (4.4-10.8)
[2021-07-21 06:45] LABS: Basophils % (auto) 0.6 % (0.0-2.0); Eosinophils % (auto) 5.6 % (0.0-7.0); Hematocrit 32.5 % (41.0-53.0); Hemoglobin 10.9 g/dL (13.5-17.5); Mean Corpuscular Hgb Conc. 33.4 g/dL (32.0-36.0); Monocytes # (auto) 0.7 10 ^3/uL (0-1.3); Neutrophils # (auto) 1.4 10 ^3/uL (1.6-8.6); Neutrophils % (auto) 43.4 % (37.0-80.0); Red Blood Cells 4.93 10^6/uL (4.5-5.90); Red Cell Distribution Width 14.8 % (11.8-14.3)
[2021-07-21 06:55] LABS: Monocytes % (auto) 20.4 % (0.0-12.0)
[2021-07-21 06:56] LABS: Albumin 2.3 g/dL (3.4-5.0); Potassium 4.3 mmol/L (3.5-5.1)
[2021-07-21 06:58] LABS: BUN/Creatinine Ratio 14.5
[2021-07-21 07:01] LABS: Bilirubin, Total 0.4 mg/dL (0.2-1.0); Total Protein 7.2 g/dL (6.4-8.2)
[2021-07-21] MEDS: ENOXAPARIN SOD 40 MG/0.4 ML SYRINGE SC SCH (08:59)
[2021-07-21 09:00] VITALS: BP 131/79
[2021-07-21 13:00] VITALS: BP 118/61
[2021-07-21] MEDS: HYDROmorphone HCL 2 MG/ML VL IV PRN (13:21)
[2021-07-21 17:00] VITALS: BP 133/73
[2021-07-21] MEDS: ONDANSETRON HCL 4 MG/2 ML VIAL IV PRN (18:35)
[2021-07-21 22:00] VITALS: BP 116/70
[2021-07-22 05:00] VITALS: BP 127/85
[2021-07-22] MEDS: HYDROcodone-ACET 5/325MG TAB PO PRN ×3 (06:11→22:30)
[2021-07-22 06:47] LABS: Hemoglobin 10.5 g/dL (13.5-17.5); White Blood Cell 3.8 10^3/uL (4.4-10.8)
[2021-07-22 06:49] LABS: Hematocrit 31.7 % (41.0-53.0); Mean Corpuscular Hemoglobin 21.8 pg (28.0-32.0); Mean Corpuscular Hgb Conc. 33.2 g/dL (32.0-36.0); Mean Corpuscular Volume 65.5 fL (80.0-100.0); Red Blood Cells 4.84 10^6/uL (4.5-5.90); Red Cell Distribution Width 14.7 % (11.8-14.3)
[2021-07-22 07:13] LABS: Band Neutrophils % (manual) 0; Basophils % (manual) 0 (0.0-2.0); Blast Cells 0; Metamyelocytes % 0; Myelocytes % 0; Promyelocytes % 0; Reactive Lymphocytes 0
[2021-07-22 08:00] VITALS: BP 120/65
[2021-07-22] MEDS: ENOXAPARIN SOD 40 MG/0.4 ML SYRINGE SC SCH (10:07)
[2021-07-22 11:26] LABS: Eosinophils % (manual) 2 (0-7); Lymphocytes % (manual) 32 (10.0-50.0); Monocytes % (manual) 4 (0-12)
[2021-07-22 12:00] VITALS: BP 111/66
[2021-07-22 16:00] VITALS: BP 105/62
[2021-07-22 22:00] VITALS: BP 108/62
[2021-07-23] MEDS: HYDROcodone-ACET 5/325MG TAB PO PRN ×4 (04:07→21:37)
[2021-07-23 05:00] VITALS: BP 120/70
[2021-07-23 09:00] VITALS: BP 122/75
[2021-07-23] MEDS ORDERED: HYOSCYAMINE SULF 0.125 MG ODT TAB PO PRN (10:00)
[2021-07-23] MEDS: ENOXAPARIN SOD 40 MG/0.4 ML SYRINGE SC SCH (10:38)
[2021-07-23] MEDS: FLORASTOR (S. BOULARDII) 250 MG CAP PO SCH (10:40)
[2021-07-23 13:00] VITALS: BP 124/75
[2021-07-23] MEDS: ONDANSETRON HCL 4 MG/2 ML VIAL IV PRN (13:23)
[2021-07-23 17:00] VITALS: BP 130/58
[2021-07-23 22:00] VITALS: BP 125/76
[2021-07-24 05:00] VITALS: BP 125/67
[2021-07-24] MEDS ORDERED: SACC250C PO (09:24)
[2021-07-24] MEDS ORDERED: PANT40TA2 PO (09:24)
[2021-07-24] MEDS ORDERED: HYDR-4902 PO (09:25)
[2021-07-24] MEDS ORDERED: ONDA-144 PO (09:30)
[2021-07-24] MEDS ORDERED: DICY10CA PO (09:30)
[2021-07-24] MEDS: FLORASTOR (S. BOULARDII) 250 MG CAP PO SCH (09:46)
[2021-07-24] MEDS: ENOXAPARIN SOD 40 MG/0.4 ML SYRINGE SC SCH (09:46)
[2021-07-24] MEDS: HYDROcodone-ACET 5/325MG TAB PO PRN (09:47)
== END 2021-07-24 15:33 | disposition home health service (06) | DRG 330 ==
LOC: ER 06:07 → OVERFLOW 11:17 → EAST 13:23 → TELE-EAST 07-15 06:47 → ICU WEST 07-15 13:40 → TELE-CENTR 07-16 13:39 → CENTRAL 07-19 16:42
PROVIDERS: ADMIT Hospitalist; ATTEND Internal Medicine
PROC: 5A09357 Assistance with Respiratory Ventilation, Less than 24 Consecutive Hours, Continuous Positive Airway Pressure (ICD-10-PCS; principal; 2021-07-11)
PROC: 0D9670Z Drainage of Stomach with Drainage Device, Via Natural or Artificial Opening (ICD-10-PCS; 2021-07-12)
PROC: 5A09357 Assistance with Respiratory Ventilation, Less than 24 Consecutive Hours, Continuous Positive Airway Pressure (ICD-10-PCS; 2021-07-13)
PROC: 0DJD8ZZ Inspection of Lower Intestinal Tract, Via Natural or Artificial Opening Endoscopic (ICD-10-PCS; 2021-07-13)
PROC: 0D1B0Z4 Bypass Ileum to Cutaneous, Open Approach (ICD-10-PCS; 2021-07-15)
PROC: 5A09357 Assistance with Respiratory Ventilation, Less than 24 Consecutive Hours, Continuous Positive Airway Pressure (ICD-10-PCS; 2021-07-15)
PROC: 0DBN0ZZ Excision of Sigmoid Colon, Open Approach (ICD-10-PCS; 2021-07-15 07:53)
PROC: 5A09357 Assistance with Respiratory Ventilation, Less than 24 Consecutive Hours, Continuous Positive Airway Pressure (ICD-10-PCS; 2021-07-17)
PROC: 5A09357 Assistance with Respiratory Ventilation, Less than 24 Consecutive Hours, Continuous Positive Airway Pressure (ICD-10-PCS; 2021-07-18)
PROC: 5A09357 Assistance with Respiratory Ventilation, Less than 24 Consecutive Hours, Continuous Positive Airway Pressure (ICD-10-PCS; 2021-07-19)
PROC: 5A09357 Assistance with Respiratory Ventilation, Less than 24 Consecutive Hours, Continuous Positive Airway Pressure (ICD-10-PCS; 2021-07-21)
PROC: 5A09357 Assistance with Respiratory Ventilation, Less than 24 Consecutive Hours, Continuous Positive Airway Pressure (ICD-10-PCS; 2021-07-22)
DX: K56.609 Unspecified intestinal obstruction, unspecified as to partial versus complete obstruction (principal); K59.39 Other megacolon; K29.00 Acute gastritis without bleeding; K21.9 Gastro-esophageal reflux disease without esophagitis; K56.41 Fecal impaction; Z20.822 Contact with and (suspected) exposure to COVID-19; E16.2 Hypoglycemia, unspecified; E78.5 Hyperlipidemia, unspecified; G47.30 Sleep apnea, unspecified; Z80.42 Family history of malignant neoplasm of prostate; Z82.49 Family history of ischemic heart disease and other diseases of the circulatory system; Z83.3 Family history of diabetes mellitus; Z86.19 Personal history of other infectious and parasitic diseases
CPT/HCPCS: 36415; 71045; 74176; 74250; 76705; 80053; 80061; 80069; 81001; 82040; 82962; 83036; 83605; 83690; 83735; 83880; 84100; 84443; 84478; 84484; 84550; 85007; 85025; 85027; 85610; 85730; 86677; 86850; 86900; 86901; 86920; 87040; 87086; 93005; 94640; 94660; 96361; 96365; 96375; C9113; G0378; J0690; J0696; J1815; J1885; J2001; J2250; J2405; J2543; J2704; J7131

== ENCOUNTER 2021-11-02 14:05 | Emergency (ER) | payer BC ==
[~2021-11-02] VITALS: Ht 180.3 cm; Wt 97.5 kg
[~2021-11-02 14:05] MED LIST: DICY10CA PO; HYDR-4902 PO; ONDA-144 PO; PANT40TA2 PO; SACC250C PO
[2021-11-03 01:00] VITALS: BP 110/65
== END 2021-11-03 01:57 | disposition home or self-care (01) ==
LOC: ER 14:05
DX: I89.0 Lymphedema, not elsewhere classified (principal)
CPT/HCPCS: 93971

== ENCOUNTER 2022-05-10 05:37 | Emergency (ER) | payer BC ==
[~2022-05-10] VITALS: Ht 180.3 cm; Wt 113.6 kg
[2022-05-10 06:31] LABS: Hematocrit 51.2 % (41.0-53.0); Hemoglobin 16.2 g/dL (13.5-17.5); Mean Corpuscular Hemoglobin 21.8 pg (28.0-32.0); Mean Corpuscular Hgb Conc. 31.6 g/dL (32.0-36.0); Mean Corpuscular Volume 69.1 fL (80.0-100.0); Red Blood Cells 7.41 10^6/uL (4.5-5.90); Red Cell Distribution Width 16.2 % (11.8-14.3)
[2022-05-10 06:43] LABS: Basophils % (manual) 0 (0.0-2.0); Blast Cells 0; Eosinophils % (manual) 0 (0-7); Metamyelocytes % 0; Myelocytes % 0; Promyelocytes % 0
[2022-05-10 06:53] LABS: Albumin 4.5 g/dL (3.4-5.0); Calcium 9.8 mg/dL (8.5-10.1); Magnesium 2.7 mg/dL (1.6-2.6); Potassium 4.5 mmol/L (3.5-5.1)
[2022-05-10 06:56] LABS: BUN/Creatinine Ratio 13.7
[2022-05-10 07:15] LABS: Bilirubin, Total 0.5 mg/dL (0.2-1.0); Total Protein 9.9 g/dL (6.4-8.2)
[2022-05-10 11:54] LABS: Band Neutrophils % (manual) 5; Lymphocytes % (manual) 25 (10.0-50.0); Reactive Lymphocytes 1
[2022-05-10 11:56] LABS: Monocytes % (manual) 16 (0-12)
[2022-05-10] MEDS ORDERED: CHOL500035 PO (16:44)
[2022-05-10] MEDS ORDERED: DEXT1SYP9 GT (16:44)
[2022-05-10] MEDS ORDERED: AZIT500T PO (16:44)
[2022-05-10] MEDS ORDERED: ZINC220C10 PO (16:44)
[2022-05-10] MEDS ORDERED: ASCO500T11 PO (16:44)
[2022-05-10] MEDS ORDERED: AZITHROMYCIN 500MG/ 250ML 250 ML IV ONE (17:00)
[2022-05-10] MEDS ORDERED: AZITHROMYCIN 250 MG TAB PO ONE (18:00)
[2022-05-10 18:29] VITALS: BP 126/62
== END 2022-05-10 18:31 | disposition home or self-care (01) ==
LOC: ER 05:37
DX: U07.1 COVID-19 (principal); R07.89 Other chest pain; K94.00 Colostomy complication, unspecified; K21.9 Gastro-esophageal reflux disease without esophagitis; Z79.899 Other long term (current) drug therapy; Z98.890 Other specified postprocedural states
CPT/HCPCS: 36415; 71046; 80053; 83735; 83880; 84484; 85007; 85027; 87426; 87804; 93005

== ENCOUNTER → 2023-11-12 | Outpatient (CLI) | payer BC ==
[~2023-11-12] MED LIST changes: -DICY10CA PO; +DIPH50TA9 PO; -HYDR-4902 PO; +LEVO500T91 PO
[2023-11-12 11:56] LABS: Basophils # (auto) 0 10 ^3/uL (0-0.2); Basophils % (auto) 0.3 % (0.0-2.0); Hemoglobin 12.4 g/dL (13.5-17.5); Mean Corpuscular Hemoglobin 22.1 pg (28.0-32.0); Monocytes # (auto) 0.9 10 ^3/uL (0-1.3); Neutrophils # (auto) 1.8 10 ^3/uL (1.6-8.6)
[2023-11-12 11:59] LABS: Eosinophils # (auto) 0.2 10 ^3/uL (0-0.8); Eosinophils % (auto) 3.1 % (0.0-7.0); Hematocrit 38.4 % (41.0-53.0); Lymphocytes % (auto) 41.3 % (10.0-50.0); Mean Corpuscular Hgb Conc. 32.4 g/dL (32.0-36.0); Mean Corpuscular Volume 68.4 fL (80.0-100.0); Neutrophils % (auto) 36.6 % (37.0-80.0); Red Blood Cells 5.62 10^6/uL (4.5-5.90); White Blood Cell 4.9 10^3/uL (4.4-10.8)
[2023-11-12 12:01] LABS: Monocytes % (auto) 18.7 % (0.0-12.0)
[2023-11-12 12:26] LABS: Alanine Aminotransferase 29 U/L (7-40); Alkaline Phosphatase 68 U/L (46-116); Anion Gap 6 (5-15); Aspartate Aminotransferase 24 U/L (13-40); BUN/Creatinine Ratio 8.4 (10.0-20.0); Blood Urea Nitrogen 9 mg/dL (9-23); Calcium 9.5 mg/dL (8.7-10.4); Carbon Dioxide 27 mmol/L (20-30); Chloride 108 mmol/L (98-107); Glucose 94 mg/dL (74-106); LDL Cholesterol 56 mg/dL (< 100); Potassium 4.4 mmol/L (3.5-5.1); Sodium 141 mmol/L (136-145); Triglycerides 81 mg/dL (< 150)
[2023-11-12 12:27] LABS: Bilirubin, Total 0.3 mg/dL (0.2-1.0); Cholesterol 108 mg/dL (< 200); HDL Cholesterol 39 mg/dL (40-59); Total Protein 7.6 g/dL (5.7-8.2)
== END | disposition home or self-care (01) ==
LOC: LAB 11:41
PROVIDERS: ATTEND Student in an Organized Health Care Education/Training Program
DX: R10.84 Generalized abdominal pain (principal); L21.9 Seborrheic dermatitis, unspecified; Z93.3 Colostomy status; K21.9 Gastro-esophageal reflux disease without esophagitis
CPT/HCPCS: 36415; 80053; 80061; 85025

== ENCOUNTER → 2024-07-14 | Outpatient (CLI) | payer BC ==
[2024-07-14 10:01] LABS: Basophils # (auto) 0 10 ^3/uL (0-0.2); Hemoglobin 13.5 g/dL (13.5-17.5); Lymphocytes # (auto) 1.4 10 ^3/uL (0.4-5.4); Lymphocytes % (auto) 31.4 % (10.0-50.0); Monocytes # (auto) 0.6 10 ^3/uL (0-1.3); Neutrophils # (auto) 2.5 10 ^3/uL (1.6-8.6); Nucleated Red Blood Cells % 0.2 %; White Blood Cell 4.6 10^3/uL (4.4-10.8)
[2024-07-14 10:03] LABS: Basophils % (auto) 0.3 % (0.0-2.0); Eosinophils # (auto) 0 10 ^3/uL (0-0.8); Hematocrit 42.2 % (41.0-53.0); Mean Corpuscular Hemoglobin 21.8 pg (28.0-32.0); Mean Corpuscular Hgb Conc. 31.9 g/dL (32.0-36.0); Mean Corpuscular Volume 68.3 fL (80.0-100.0); Monocytes % (auto) 12.2 % (0.0-12.0); Neutrophils % (auto) 55.1 % (37.0-80.0); Platelet Count (auto) 219 10^3/uL (140-450); Red Blood Cells 6.18 10^6/uL (4.5-5.90); Red Cell Distribution Width 15.8 % (11.8-14.3)
[2024-07-14 10:11] LABS: Alanine Aminotransferase 39 U/L (7-40); Albumin 4.6 g/dL (3.2-4.8); Alkaline Phosphatase 78 U/L (46-116); Anion Gap 10 (5-15); Aspartate Aminotransferase 32 U/L (13-40); Blood Urea Nitrogen 10 mg/dL (9-23); Calcium 9.9 mg/dL (8.7-10.4); Carbon Dioxide 26 mmol/L (20-31); Chloride 105 mmol/L (98-107); LDL Cholesterol 28 mg/dL (< 100); Potassium 4.5 mmol/L (3.5-5.1); Sodium 141 mmol/L (136-145); Triglycerides 44 mg/dL (< 150)
[2024-07-14 10:12] LABS: Bilirubin, Total 0.4 mg/dL (0.2-1.0); Cholesterol 70 mg/dL (< 200)
[2024-07-14 10:22] LABS: Urine Bacteria FEW /hpf (None Seen); Urine Blood Negative /uL (Negative); Urine Clarity Clear (Clear); Urine Color Yellow (Yellow); Urine Hyaline Cast FEW /lpf (0 - 2); Urine Mucus FEW (None Seen); Urine Protein, UAD 1+ (Negative); Urine Specific Gravity 1.037 (1.001-1.035); Urine Squamous Epithelial Cell FEW /hpf (<5); Urine Urobilinogen 2 mg/dL (Negative); Urine WBC 5 /HPF (0-3)
[2024-07-14 10:26] LABS: Glucose 110 mg/dL (74-106); HDL Cholesterol 28 mg/dL (40-59); Total Protein 8.6 g/dL (5.7-8.2)
== END | disposition home or self-care (01) ==
LOC: LAB 09:18
PROVIDERS: ATTEND Nurse Practitioner
DX: I10 Essential (primary) hypertension (principal); E78.5 Hyperlipidemia, unspecified; R73.9 Hyperglycemia, unspecified
CPT/HCPCS: 36415; 80053; 80061; 81001; 83036; 84443; 85025